=== PATIENT | female | born 1935 | race Caucasian/White ===

== ENCOUNTER 2020-04-07 13:57 | Outpatient (CLI) | payer MEDICARE ==
--- NOTE | 2020-04-07 15:55 | MRI ---
MRI OF THE LUMBAR SPINE WITHOUT CONTRAST: 04/07/20 INDICATIONS: History of low back pain and right hip pain. COMPARISON: Lumbar spinal radiograph dated 03/22/20. FINDINGS: There is dextroscoliosis of the upper lumbar spine. The conus is seen to terminate at approximately L 1. There is grade I anterolisthesis of L4 on L5. There is mild retrolisthesis of T12 on L1. The visualized aspects of the retroperitoneum and perivertebral soft tissues demonstrate no definite free fluid. Bone marrow signal intensity appears within normal limits. At the L5-S1 level, there is prominent facet joint degenerative change, right greater than left with a broad based disc bulge but no appreciable central canal or neural foraminal narrowing. At L4-5, there is a severe right and moderate left facet joint degenerative change. There is an asymm etric to the right broad based disc bulge. Constellation of findings induces moderate to severe right neural foraminal narrowing. At L3-4, there is a broad based bulge with ligamentum flavum hypertrophy and facet joint degenerative change inducing mild central canal narrowing and mild bilateral neural foraminal narrowing. At L2-3, there is a broad based bulge with facet joint degenerative change and ligamentum flavum hype rtrophy inducing moderate central canal narrowing with moderate bilateral neural foraminal narrowing, left greater than right. At L1-2, there is a broad based bulge inducing mild central canal narrowing and mild bilateral neural foraminal narrowing, left greater than right. At T12-L1, there is a broad based disc osteophyte complex and facet hypertrophy inducing moderate lef t neural foraminal narrowing. IMPRESSION: Multilevel spondylosis of the lumbar spine with central canal and neural foraminal narrowing as detai led above. POS: LANIE
== END 2020-04-07 13:58 | disposition home or self-care (01) ==
LOC: BICMRI 13:57
PROVIDERS: ATTEND Family Medicine
DX: M51.16 Intervertebral disc disorders with radiculopathy, lumbar region (principal); M47.26 Other spondylosis with radiculopathy, lumbar region; G89.4 Chronic pain syndrome; M48.061 Spinal stenosis, lumbar region without neurogenic claudication; M48.05 Spinal stenosis, thoracolumbar region
CPT/HCPCS: 72148

== ENCOUNTER 2021-12-12 19:12 | Inpatient (IN) | payer MEDICARE ==
[2021-12-12 19:36] LABS: #Eosinphils 0.1 thou/uL (0.0-0.7); #Lymphocytes 1.4 thou/uL (1.20-3.40); #Monocytes 0.5 thou/uL (0.11-0.59); #Neutrophils 3.5 thou/uL (1.40-6.50); %Basophils 0.2 % (0.0-1.0); %Eosinophils 1.2 % (0.0-10.0); %Lymphocytes 25.7 % (21.0-51.0); %Monocytes 9.3 % (0.0-10.0); %Neutrophils 63.6 % (42.0-75.0); Hemoglobin 11.9 g/dL (12.0-16.0); Mean Corpuscular HGB CONC 32.3 g/dL (32.0-36.0); Mean Corpuscular Volume 99.1 fL (78.0-98.0); Mean Platelet Volume 6.7 fL (7.4-10.4); Platelet Count 259 thou/uL (130-400); RBC Distribution Width 12.2 % (11.5-14.5); Red Blood Cell (RBC) Count 3.72 mill/uL (4.20-5.40); White Blood Cell (WBC) Count 5.6 thou/uL (4.8-10.8)
[2021-12-12 19:44] LABS: INR-International Normal Ratio 1.2; Prothrombin Time 15.3 sec (12.0-14.7)
[2021-12-12 19:45] LABS: PTT 30.7 sec (22.9-36.1)
[2021-12-12] MEDS ORDERED: Aspirin Chewable 81 MG TAB ONE (19:46)
[2021-12-12] MEDS ORDERED: Labetalol HCl 100 MG/20 ML VIAL ONE (19:47)
[2021-12-12] MEDS ORDERED: hydrALAZINE 20 MG/ML VIAL ONE ×2 (19:49→20:28)
[2021-12-12 19:57] LABS: ALT (SGPT) 7 U/L (8-55); AST (SGOT) 16 U/L (5-34); Albumin 4.1 g/dL (3.4-4.8); Alkaline Phosphatase 88 U/L (40-110); Anion Gap 18 mmol/L (10-20); BUN (Urea Nitrogen) 10 mg/dL (9.8-20.1); Bilirubin, Total 0.5 mg/dL (0.2-1.2); Calc. Creatinine Clearance 0 mL/min (70-130); Calcium 8.9 mg/dL (7.8-10.44); Carbon Dioxide 21 mmol/L (23-31); Chloride 104 mmol/L (98-107); Globulin 2.8 g/dL (2.4-3.5); Glucose 114 mg/dL (83-110); Potassium 3.8 mmol/L (3.5-5.1); Protein, Total 6.9 g/dL (5.8-8.1); Sodium 139 mmol/L (136-145)
[2021-12-12] MEDS ORDERED: Ondansetron PF 4 MG/2 ML Vial IVP PRN (23:10)
[2021-12-12] MEDS ORDERED: Acetaminophen 325 MG TAB PO PRN (23:10)
[2021-12-12] MEDS ORDERED: Labetalol HCl 100 MG/20 ML VIAL SLOW IVP PRN (23:10)
[2021-12-12] MEDS ORDERED: hydrALAZINE 20 MG/ML VIAL SLOW IVP PRN (23:10)
[2021-12-12 23:27] VITALS: BMI 18.7
[2021-12-13 04:47] LABS: #Eosinphils 0.1 thou/uL (0.0-0.7); #Lymphocytes 1.7 thou/uL (1.20-3.40); #Monocytes 0.6 thou/uL (0.11-0.59); #Neutrophils 2.6 thou/uL (1.40-6.50); %Basophils 0.5 % (0.0-1.0); %Eosinophils 2.2 % (0.0-10.0); %Lymphocytes 33.8 % (21.0-51.0); %Neutrophils 51.6 % (42.0-75.0); Hemoglobin 10.8 g/dL (12.0-16.0); Mean Corpuscular HGB CONC 32.9 g/dL (32.0-36.0); Mean Corpuscular Hemoglobin 32.9 pg (27.0-31.0); Mean Platelet Volume 6.8 fL (7.4-10.4); Platelet Count 227 thou/uL (130-400); RBC Distribution Width 12.2 % (11.5-14.5); Red Blood Cell (RBC) Count 3.28 mill/uL (4.20-5.40); White Blood Cell (WBC) Count 4.9 thou/uL (4.8-10.8)
[2021-12-13 04:51] LABS: Hemoglobin A1c 5.3 % (4.0-6.0)
[2021-12-13 05:08] LABS: Anion Gap 12 mmol/L (10-20); BUN (Urea Nitrogen) 10 mg/dL (9.8-20.1); Calc. Creatinine Clearance 44 mL/min (70-130); Calcium 8.5 mg/dL (7.8-10.44); Carbon Dioxide 23 mmol/L (23-31); Cardiac Risk 3.8 (Less than 4.5); Chloride 107 mmol/L (98-107); Cholesterol 184 mg/dl (< 200 Desired); Glucose 93 mg/dL (83-110); HDL Cholesterol 49 mg/dL (>60 Neg Risk); LDL Cholesterol, Calculated 124 mg/dL; Potassium 3.3 mmol/L (3.5-5.1); Sodium 139 mmol/L (136-145); Triglycerides 53 mg/dL (Less than 150)
[2021-12-13] MEDS ORDERED: Aspirin 81 mg Enteric Coated Tablet PO SCH (09:00)
[2021-12-13] MEDS: Aspirin 325 MG TAB PO SCH (09:18)
[2021-12-13] MEDS: Atorvastatin Calcium 40 MG TAB PO SCH (09:19)
[2021-12-13] MEDS: Enoxaparin Sodium 40 MG/0.4 ML SYRINGE SC SCH (09:19)
[2021-12-13 13:59] LABS: SARS-CoV-2 PCR by NAA Not Detected (NotDetected)
[2021-12-14 05:05] LABS: #Eosinphils 0.1 thou/uL (0.0-0.7); #Lymphocytes 1.6 thou/uL (1.20-3.40); #Monocytes 0.6 thou/uL (0.11-0.59); #Neutrophils 2.7 thou/uL (1.40-6.50); %Basophils 0.1 % (0.0-1.0); %Eosinophils 2.3 % (0.0-10.0); %Lymphocytes 31.8 % (21.0-51.0); %Monocytes 11.5 % (0.0-10.0); %Neutrophils 54.2 % (42.0-75.0); Mean Corpuscular HGB CONC 31.8 g/dL (32.0-36.0); Platelet Count 237 thou/uL (130-400); RBC Distribution Width 12.3 % (11.5-14.5); Red Blood Cell (RBC) Count 3.44 mill/uL (4.20-5.40)
[2021-12-14 05:23] LABS: Anion Gap 9 mmol/L (10-20); BUN (Urea Nitrogen) 11 mg/dL (9.8-20.1); Calc. Creatinine Clearance 42 mL/min (70-130); Calcium 8.2 mg/dL (7.8-10.44); Carbon Dioxide 24 mmol/L (23-31); Cardiac Risk 3.5 (Less than 4.5); Chloride 107 mmol/L (98-107); Cholesterol 181 mg/dl (< 200 Desired); Glucose 90 mg/dL (83-110); HDL Cholesterol 51 mg/dL (>60 Neg Risk); LDL Cholesterol, Calculated 120 mg/dL; Potassium 3.4 mmol/L (3.5-5.1); Sodium 137 mmol/L (136-145); Triglycerides 50 mg/dL (Less than 150)
[2021-12-14] MEDS: Aspirin 325 MG TAB PO SCH (08:59)
[2021-12-14] MEDS: Amlodipine 5 MG TAB PO SCH (08:59)
[2021-12-14] MEDS: Atorvastatin Calcium 40 MG TAB PO SCH (09:00)
[2021-12-14] MEDS: Enoxaparin Sodium 40 MG/0.4 ML SYRINGE SC SCH (09:00)
[2021-12-14] MEDS ORDERED: Clopidogrel Bisulfate 75 MG TAB PO SCH (15:45)
[2021-12-15 02:34] LABS: Anion Gap 12 mmol/L (10-20); BUN (Urea Nitrogen) 13 mg/dL (9.8-20.1); Calc. Creatinine Clearance 39 mL/min (70-130); Calcium 8.1 mg/dL (7.8-10.44); Carbon Dioxide 21 mmol/L (23-31); Chloride 107 mmol/L (98-107); Glucose 100 mg/dL (83-110); Magnesium 1.9 mg/dL (1.6-2.6); Potassium 3.6 mmol/L (3.5-5.1); Sodium 136 mmol/L (136-145)
[2021-12-15 05:28] LABS: #Eosinphils 0.1 thou/uL (0.0-0.7); #Lymphocytes 1.7 thou/uL (1.20-3.40); #Monocytes 0.7 thou/uL (0.11-0.59); #Neutrophils 4.1 thou/uL (1.40-6.50); %Basophils 0.2 % (0.0-1.0); %Eosinophils 2.3 % (0.0-10.0); %Lymphocytes 25.2 % (21.0-51.0); %Monocytes 10.3 % (0.0-10.0); Hemoglobin 10.7 g/dL (12.0-16.0); Mean Corpuscular HGB CONC 32.4 g/dL (32.0-36.0); Mean Corpuscular Hemoglobin 32.2 pg (27.0-31.0); Mean Corpuscular Volume 99.5 fL (78.0-98.0); Mean Platelet Volume 6.8 fL (7.4-10.4); Platelet Count 237 thou/uL (130-400); RBC Distribution Width 12.2 % (11.5-14.5); White Blood Cell (WBC) Count 6.5 thou/uL (4.8-10.8)
[2021-12-15 05:50] LABS: Anion Gap 11 mmol/L (10-20); BUN (Urea Nitrogen) 13 mg/dL (9.8-20.1); Calc. Creatinine Clearance 41 mL/min (70-130); Calcium 8.3 mg/dL (7.8-10.44); Carbon Dioxide 24 mmol/L (23-31); Chloride 107 mmol/L (98-107); Glucose 93 mg/dL (83-110); Potassium 3.5 mmol/L (3.5-5.1); Sodium 138 mmol/L (136-145)
[2021-12-15] MEDS: Amlodipine 5 MG TAB PO SCH (08:45)
[2021-12-15] MEDS: Atorvastatin Calcium 40 MG TAB PO SCH (08:46)
[2021-12-15] MEDS: Enoxaparin Sodium 40 MG/0.4 ML SYRINGE SC SCH (08:46)
[2021-12-15] MEDS ORDERED: Hydrochlorothiazide 25 MG TAB PO SCH (09:00)
[2021-12-15] MEDS ORDERED: Cholecalciferol 1,000 UNITS (25 MCG) TAB PO SCH (09:00)
[2021-12-15] MEDS ORDERED: Aspirin 81 mg Enteric Coated Tablet PO SCH (09:00)
[2021-12-15] MEDS ORDERED: Clopidogrel Bisulfate 75 MG TAB PO SCH (09:00)
[2021-12-15 11:58] VITALS: BP 143/71; TEMP 98
== END 2021-12-15 16:51 | disposition home health service (06) | DRG 65 ==
LOC: ERS 19:12 → NEURO 20:15 → OBSVTOIN 12-13 11:09
PROVIDERS: ADMIT Internal Medicine; ATTEND Family Medicine
DX: I63.9 Cerebral infarction, unspecified (principal); G81.91 Hemiplegia, unspecified affecting right dominant side; I16.1 Hypertensive emergency; I50.22 Chronic systolic (congestive) heart failure; Z20.822 Contact with and (suspected) exposure to COVID-19; R29.703 NIHSS score 3; F17.210 Nicotine dependence, cigarettes, uncomplicated; F32.A Depression, unspecified; E78.5 Hyperlipidemia, unspecified; I11.0 Hypertensive heart disease with heart failure; I08.3 Combined rheumatic disorders of mitral, aortic and tricuspid valves; Z90.710 Acquired absence of both cervix and uterus; Z88.5 Allergy status to narcotic agent; Z71.6 Tobacco abuse counseling; Z79.899 Other long term (current) drug therapy; Z79.82 Long term (current) use of aspirin
CPT/HCPCS: 36415; 36416; 70450; 70551; 80048; 80053; 80061; 83036; 83735; 83880; 84484; 85025; 85610; 85730; 93005; 93306; 93880; 95712; 95819; 95957; 96372; 96374; 96375; 96376; G0378; J0360; J1650; U0003; U0005